=== PATIENT | male | born 2005 | race Hispanic/Latino ===

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

== ENCOUNTER 2024-10-24 14:27 | Emergency (ER) | payer SELFPAY ==
[~2024-10-24] VITALS: Ht 170.2 cm; Wt 93.9 kg
[2024-10-24 15:54] VITALS: BP 121/75; PULSE 72; RESP 20; TEMP 98; O2SAT 98
[2024-10-24] MEDS ORDERED: CEPH500B PO (16:36)
[2024-10-24] MEDS ORDERED: MUPI22OI2 TP (16:36)
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
== END 2024-10-24 16:38 | disposition home or self-care (01) ==
LOC: EDH 14:27
DX: S90.211A Contusion of right great toe with damage to nail, initial encounter (principal); S50.311A Abrasion of right elbow, initial encounter; S80.11XA Contusion of right lower leg, initial encounter; S80.211A Abrasion, right knee, initial encounter; S80.811A Abrasion, right lower leg, initial encounter; Z79.899 Other long term (current) drug therapy; V29.99XA Rider (driver) (passenger) of other motorcycle injured in unspecified traffic accident, initial encounter; Y93.89 Activity, other specified; Y92.488 Other paved roadways as the place of occurrence of the external cause; Y99.8 Other external cause status
CPT/HCPCS: 73660; 99283

== ENCOUNTER 2025-06-23 12:45 | Emergency (ER) | payer SELFPAY ==
[~2025-06-23] VITALS: Ht 165.1 cm; Wt 95.3 kg
[2025-06-23 13:05] VITALS: BP 130/54; PULSE 82; RESP 18; TEMP 98.5; O2SAT 99
--- NOTE | 2025-06-23 13:14 | ERN ---
ED Note History of Present Illness Stated Complaint: DIZZINESS Chief Complaint: Dizzy/Light Headed Time Seen by MD: 13:07 Dictation: PATIENT IS A 20-YEAR-OLD MALE COMING IN COMPLAINTS OF DIZZINESS AND NEAR-SYNCOPE THIS MORNING. HE STATES HE HAD HAD A BOWEL MOVEMENT, WHEN HE STOOD UP HE SAID HE GOT VERY DIZZY IN THE ROOM WAS SPINNING. IT HAS LASTED FOR A FEW SEC THEN IT CLEARED UP. HE CAME IN NOW TO THE EMERGENCY ROOM STATES HE JUST WANT TO MAKE SURE HE IS OKAY. NIH IS 0 GAIT IS STEADY. THERE WAS NO NYSTAGMUS Allergies: Coded Allergies: No Known Drug Allergies (Unverified Allergy, Unknown, 10/24/24) Home Meds Active Scripts Cephalexin Monohydrate (Keflex) 500 Mg Cap, 500 MG PO BID for 5 Days, #10 CAP Prov:LINDA BENTON 10/24/24 Mupirocin (Mupirocin Ointment) 2 % Oint, 1 APPL TP TID for 5 Days, #15 GM 0 Refills apply to affected area(s) Prov:LINDA BENTON 10/24/24 Past Medical History Past Medical History: No Pertinent History Surgical History: None RN Note Reviewed/Agreed w/PFSH: Yes Review of System Dictation CONSTITUTIONAL: Negative except for HPI HEAD/FACE: Negative except for HPI EENT: Negative except for HPI RESPIRATORY: Negative except for HPI GASTROINTESTINAL/ABDOMINAL: Negative except for HPI GENITOURINARY: Negative except for HPI MUSCULOSKELETAL: Negative except for HPI INTEGUMENTARY: Negative except for HPI NEUROLOGICAL/PSYCH: Negative except for HPI dizzy/mild generalized headache HEMATOLOGIC/LYMPHATIC: Negative except for HPI All Systems Negative, Except as noted above. 13 point review of systems assessed and all negative except for above. Initial Vital Sign VS Vital Signs Date Time Temp Pulse Resp B/P (MAP) Pulse Ox O2 Delivery O2 Flow Rate FiO2 06/23/25 12:51 98.4 82 18 130/84 98 Physical Exam Dictation Vital Signs reviewed General Appearance: Alert, oriented x 3, no acute distress, well developed, nourished. Head and Face: non-traumatic. Eyes: PERRL, pink conjunctivas, eyelid no trauma, anterior chamber with arcus senilis. No nystagmus Ears: Pinnas intact and no signs of trauma or erythema ear canals clear and no discharge TM no erythema Nose: No discharge, no bleeding. Oropharynx: Mouth normal, tongue pink, pharynx clear,no erythema, tonsils no exudates, no abscesses noted, mucous membrane moist Neck: Supple, non-tender, no thyromegaly, no masses, no JVD, no bruits Breast:Deferred Chest:No tenderness, no crepitus, no paradoxical movement, no retractions Lungs:Clear, well-ventilated, symmetric, no rales, no wheezing, no rhonchi, no stridor, good breath sounds bilaterally Heart: Regular rate, regular rhythm, no murmur, no gallops Vascular: no peripheral edema, Abdomen: Soft, positive bowel sounds, nondistended, no guarding, nontender, no rebound, no masses no hepatomegaly, no splenomegaly, no Hernandez's sign, no hernias. Rectal: Deferred Genital: Deferred Neurological: Normal speech, motor function intact, sensory function intact NIH is 0 Musculoskeletal: Neck nontender, full range of motion, back nontender, full range of motion, Extremities: nontender, full range of motion Skin: Color pink, dry, no turgor, no rash, no lacerations, no abrasions, no contusions. Lymphatic: Deferred Results (Laboratory/Radiology) Labs Reviewed?: Yes EKG Comment: 1330/EKG sinus rhythm/heart rate 61/axis normal/no ED Course ED Course Orders Procedure Category Date Status Time 12 Lead Ekg Tracing- EKG 06/23/25 Logged Technical 13:11 Vital Signs Date Time Temp Pulse Resp B/P (MAP) Pulse Ox O2 Delivery O2 Flow Rate FiO2 06/23/25 12:51 98.4 82 18 130/84 98 1330/no labs or imaging indicated. Other than EKG There was no arrhythmia or ST segment changes no Q-wave Patient discharged home with vasovagal near-syncope resolved Medical Decision Making MDM Medical decision-making based on HPI and calculating NIH score. Patient states the incident happened after he had had a bowel movement Everything is resolved to Discharged home neurologically intact with a list of local primary care doctors. DX & DISP Disposition: Discharge Departure Impression: Primary Impression: Vasovagal near syncope Additional Impression: Acute headache Condition: Stable Additional Instructions: Follow-up with primary care provider in 1 to 2 days. Take medications as directed here in the emergency room. Okay to continue home medications unless otherwise discussed during your visit in the emergency room today. Return to your nearest emergency room if symptoms worsen or if there is no improvement. Call 911 if you need immediate assistance. Take Tylenol or Motrin [id number] as needed and if no contraindications are present. Increase oral hydration. A wound culture or urine culture was ordered here in the emerg ency room department please follow-up with primary care provider and advise them to get repeat ports from our facility. If you had any Calixto wrap/splints that were applied here, please do not remove them until you see your primary care or specialty. See your primary care doctor in the next one two days for follow up or one of the doctors on the list provided you. Tylenol or Motrin [id number] as needed for any headache. Referrals: SELF,REFERRAL (PCP) Time of Disposition: 13:29 I have reviewed the case, and I agree with, Diagnosis and Plan KATE ROGELP Jun 23, 2025 13:14
--- NOTE | 2025-06-23 14:25 | EKG ---
[facility] Test Date: 2025-06-23 Test Time: 13:21:25 Pat Name: NAY AHUMADA Department: ED Room: Gender: M History Faculty Member: [id number] : 2005 Requested By: KATE ROGEL Order Number: [id number] Reading MD: Real Schaffer Measurements Intervals [place] Rate: 61 P: -19 IN: 140 QRS: 69 QRSD: 96 T: 23 QT: 363 QTc: 367 Interpretive Statements Sinus Arrhythmia No previous ECG available for comparison Electronically Signed On 06-23-2025 20:21:45 ORDINARY SEAMAN by Real Schaffer Please click the below link to view image of tracing.
== END 2025-06-23 13:39 | disposition home or self-care (01) ==
LOC: EDH 12:45
DX: R55 Syncope and collapse (principal); R51.9 Headache, unspecified
CPT/HCPCS: 93005; 99283